=== PATIENT | male | born 1960 | race Two or more races ===

== ENCOUNTER 2024-01-16 17:22 | Inpatient (IN) | payer MEDICARE, OTHER ==
[~2024-01-16] VITALS: Ht 177.8 cm; Wt 82.6 kg
[2024-01-16] MEDS ORDERED: IV NS 0.9% 1,000 ML BAG IV ONE (17:30)
[2024-01-16] MEDS ORDERED: ACETAMINOPHEN ES 500 MG TABLET ONE (17:46)
[2024-01-16 17:52] LABS: BASOPHILS % (AUTO) 0.3 % (0.0-2.0); EOSINOPHILS # (AUTO) 0.2 K/uL (0.0-0.7); EOSINOPHILS % (AUTO) 1.6 % (0.0-6.0); HEMATOCRIT 31 % (39-51); HEMOGLOBIN 9.8 g/dL (13.5-17.5); LYMPHOCYTES # (AUTO) 0.7 K/uL (0.8-4.8); LYMPHOCYTES % (AUTO) 6.4 % (20.0-44.0); MEAN CORPUSCULAR HEMOGLOBIN 29 PG (26.0-33.0); MEAN CORPUSCULAR HGB CONC 32 g/dl (31.0-36.0); MEAN CORPUSCULAR VOLUME 91 fL (80-96); MONOCYTES % (AUTO) 17.2 % (2.0-12.0); NEUTROPHILS # (AUTO) 8.5 K/uL (1.8-8.9); NEUTROPHILS % (AUTO) 74.5 % (43.0-81.0); PLATELET COUNT (AUTO) 374 K/uL (150-450); RED BLOOD CELL COUNT(AUTO) 3.39 MIL/uL (4.5-6.0); RED CELL DISTRIBUTION WIDTH 16.8 % (11.5-15.0); WHITE BLOOD COUNT (AUTO) 11.5 K/uL (4.3-11.0)
[2024-01-16 17:57] LABS: CALCIUM, SERUM 10.9 mg/dL (8.5-10.1); CARBON DIOXIDE 34 mmol/L (21-32); CHLORIDE 102 mmol/L (98-107); CREATININE 3.4 mg/dL (0.6-1.3); GLUCOSE 194 mg/dL (74-106); POTASSIUM 4.1 mmol/L (3.5-5.1); SODIUM SERUM 139 mmol/L (136-145); UREA NITROGEN, BLOOD 53 mg/dL (7-18)
[2024-01-16 17:58] LABS: INR 1.1 (0.91-1.10); PARTIAL THROMBOPLASTIN TIME 36.7 SEC (24.3-34.3); PROTHROMBIN TIME 11.6 SECS (9.2-11.1)
[2024-01-16 18:03] LABS: ALANINE AMINOTRANSFERASE < 6 U/L (12-78); ALKALINE PHOSPHATASE 161 U/L (46-116); ASPARTATE AMINOTRANSFERASE 11 U/L (15-37); BILIRUBIN,DIRECT 0.2 mg/dL (0.0-0.2); BILIRUBIN,TOTAL 0.5 mg/dL (0.2-1.0); TOTAL PROTEIN, SERUM 8.5 g/dL (6.4-8.2)
[2024-01-16 18:06] LABS: LACTIC ACID 1.2 mmol/L (0.4-2.0)
[2024-01-16] MEDS: ACETAMINOPHEN ES 500 MG TABLET GT ONE (18:06)
[2024-01-16 18:07] LABS: BAND % (MANUAL) 1 % (0.0-5.0); EOSINOPHILS % (MANUAL) 1 % (0-4); LYMPHOCYTES % (MANUAL) 4 % (16-48); MONOCYTES % (MANUAL) 16 % (0-11.0); NEUTROPHILS % (MANUAL) 78 (42-76)
[2024-01-16 18:10] LABS: ANISOCYTOSIS 1+; PLATELET ESTIMATE ADEQUATE; TARGET CELLS 1+
[2024-01-16 18:13] LABS: ABG BASE EXCESS 5.7 mmol/L (-2.0-3.0); ABG OXYGEN SATURATION 99.6 % (94.0-98.0); ABG PCO2 47.6 mmHg (35.0-48.0); ABG PH 7.429 (7.350-7.450); ABG PO2 271.9 mmHg (83.0-108.0); ABG TOTAL HEMOGLOBIN 10.2 G/dL (13.5-17.5); COHb 0.3 % (0.5-1.5); MetHb 0.3 % (0.0-1.5); PEEP,BG 5 cm H2O; SITE, ABG RIGHT RADIAL; VT, ABG 500 mL
[2024-01-16] MEDS ORDERED: PIPERACI/TAZO 3.375GM/D5W 50ML PB IV ONE (18:34)
[2024-01-16] MEDS: PIPERACILLIN /TAZOBACTAM 3.375 G in IV D5W 50 ML IV ONE (18:39)
[2024-01-16] MEDS ORDERED: INSU100V39 SQ (18:43)
[2024-01-16] MEDS ORDERED: ACET160L44 GT (18:43)
[2024-01-16] MEDS ORDERED: BISA10SU11 RC (18:43)
[2024-01-16] MEDS ORDERED: GABA300C GT (18:43)
[2024-01-16] MEDS ORDERED: AMLO-212 GT (18:43)
[2024-01-16] MEDS ORDERED: MELA3TAB41 GT (18:43)
[2024-01-16] MEDS ORDERED: GLUC3SPR NS (18:43)
[2024-01-16] MEDS ORDERED: IPRA3AMP23 NEB ×2 (18:43)
[2024-01-16] MEDS ORDERED: POLY17PO4 GT (18:43)
[2024-01-16] MEDS ORDERED: ATOR10TA GT (18:43)
[2024-01-16] MEDS ORDERED: FOLI0.8T43 GT (18:43)
[2024-01-16] MEDS ORDERED: SODI1TAB66 GT (18:43)
[2024-01-16] MEDS ORDERED: SENN8.6T19 GT (18:43)
[2024-01-16] MEDS ORDERED: NUTR100037 GT (18:43)
[2024-01-16] MEDS ORDERED: HYDR-4077 GT ×2 (18:43)
[2024-01-16] MEDS ORDERED: VALP250S3 GT (18:43)
[2024-01-16] MEDS ORDERED: ONDA4TAB5 GT (18:43)
[2024-01-16] MEDS ORDERED: AMIN30LI2 GT (18:43)
[2024-01-16] MEDS ORDERED: ONDANSETRON HCL/PF 4 MG/2 ML VIAL IVP PRN (19:00)
[2024-01-16] MEDS ORDERED: Z GUARD REMEDY 4 OZ OINT TP PRN (19:00)
[2024-01-16] MEDS ORDERED: ZOLPIDEM TARTRATE 5 MG TABLET PO PRN (19:00)
[2024-01-16] MEDS ORDERED: MAG HYDROX/AL HYDROX/SIMETH 30 ML UDC PO PRN (19:00)
[2024-01-16] MEDS ORDERED: ACETAMINOPHEN 325 MG TABLET PO PRN (19:00)
[2024-01-16] MEDS ORDERED: MAGNESIUM HYDROXIDE 30 ML UDC PO PRN (19:00)
[2024-01-16 20:00] VITALS: BP 148/63; TEMP 98.8; O2SAT 99
[2024-01-16] MEDS: PIPERACILLIN /TAZOBACTAM 2.25 G in IV D5W 50 ML IV SCH (21:26)
[2024-01-17] VITALS: BP 152/65; TEMP 98.6; O2SAT 98
[2024-01-17 04:00] VITALS: BP 151/62; TEMP 98.6; O2SAT 98
[2024-01-17 07:13] LABS: BASOPHILS # (AUTO) 0.1 K/uL (0.0-0.2); BASOPHILS % (AUTO) 0.7 % (0.0-2.0); EOSINOPHILS # (AUTO) 0.5 K/uL (0.0-0.7); EOSINOPHILS % (AUTO) 4.8 % (0.0-6.0); HEMATOCRIT 28 % (39-51); LYMPHOCYTES # (AUTO) 0.8 K/uL (0.8-4.8); LYMPHOCYTES % (AUTO) 8.2 % (20.0-44.0); MEAN CORPUSCULAR HEMOGLOBIN 30 PG (26.0-33.0); MEAN CORPUSCULAR HGB CONC 32 g/dl (31.0-36.0); MEAN CORPUSCULAR VOLUME 92 fL (80-96); MONOCYTES # (AUTO) 1.2 K/uL (0.1-1.30); MONOCYTES % (AUTO) 12.8 % (2.0-12.0); NEUTROPHILS % (AUTO) 73.5 % (43.0-81.0); PLATELET COUNT (AUTO) 340 K/uL (150-450); RED BLOOD CELL COUNT(AUTO) 3.06 MIL/uL (4.5-6.0); RED CELL DISTRIBUTION WIDTH 16.5 % (11.5-15.0); WHITE BLOOD COUNT (AUTO) 9.6 K/uL (4.3-11.0)
[2024-01-17] MEDS: PANTOPRAZOLE 40 MG TABLET.DR PO SCH (07:30)
[2024-01-17 07:41] LABS: CALCIUM, SERUM 11.6 mg/dL (8.5-10.1); CREATININE 3.7 mg/dL (0.6-1.3); MAGNESIUM 2.7 mg/dL (1.8-2.4); PHOSPHORUS 2.7 mg/dL (2.5-4.9); POTASSIUM 4.5 mmol/L (3.5-5.1)
[2024-01-17 08:00] VITALS: BP 153/80; TEMP 97.9; O2SAT 98
[2024-01-17 08:07] LABS: THYROID STIMULATING HORMONE 1.33 uIU/mL (0.358-3.74)
[2024-01-17] MEDS: HEPARIN SODIUM, PORCINE 5000 UNITS/1 ML VIAL SQ SCH (09:35)
[2024-01-17 12:00] VITALS: BP 116/76; TEMP 98; O2SAT 98
[2024-01-17] MEDS ORDERED: MAGNESIUM HYDROXIDE 30 ML UDC GT PRN (12:47)
[2024-01-17] MEDS ORDERED: ZOLPIDEM TARTRATE 5 MG TABLET GT PRN (12:47)
[2024-01-17] MEDS ORDERED: MAG HYDROX/AL HYDROX/SIMETH 30 ML UDC GT PRN (12:47)
[2024-01-17] MEDS: NEPRO 1,000 ML BOTTLE GT PRN (14:16)
[2024-01-17 16:00] VITALS: BP 95/76; TEMP 99.3; O2SAT 96
[2024-01-17 20:00] VITALS: BP 150/69; TEMP 99; O2SAT 96
[2024-01-18] VITALS (7 sets, daily range): BP systolic 136–190; BP diastolic 65–90; TEMP 98.6–99.1; O2SAT 97–99
[2024-01-18] MEDS: PANTOPRAZOLE 40 MG/PACK PACK GT SCH (08:08)
[2024-01-18] MEDS ORDERED: DEXTROSE 50%-WATER 50 ML DISP.SYRIN IV PRN (12:00)
[2024-01-18] MEDS: BLOOD SUGAR DIAGNOSTIC 1 EACH STRIP VI SCH (12:23)
[2024-01-18] MEDS: INSULIN REGULAR, HUMAN 100 UNIT/ML 3 ML VIAL SQ PRN (12:24)
[2024-01-18] MEDS: ACETAMINOPHEN 650 MG/20.3 ML UDC GT PRN (20:45)
[2024-01-18] MEDS: *INSULIN REGULAR(HUMULIN R)HUM 100 UNIT/ML VIAL SQ PRN (22:24)
[2024-01-19] VITALS: BP 131/60; TEMP 99.3; O2SAT 99
[2024-01-19 04:00] VITALS: BP 157/83; TEMP 99.6; O2SAT 99
[2024-01-19 06:07] LABS: HEPATITIS B SURFACE AB Reactive (.)
[2024-01-19 06:41] LABS: BASOPHILS # (AUTO) 0.1 K/uL (0.0-0.2); BASOPHILS % (AUTO) 0.7 % (0.0-2.0); EOSINOPHILS # (AUTO) 0.4 K/uL (0.0-0.7); HEMATOCRIT 29 % (39-51); HEMOGLOBIN 9.2 g/dL (13.5-17.5); LYMPHOCYTES # (AUTO) 1.4 K/uL (0.8-4.8); LYMPHOCYTES % (AUTO) 13.4 % (20.0-44.0); MEAN CORPUSCULAR HEMOGLOBIN 29 PG (26.0-33.0); MEAN CORPUSCULAR HGB CONC 32 g/dl (31.0-36.0); MEAN CORPUSCULAR VOLUME 91 fL (80-96); MONOCYTES # (AUTO) 1.1 K/uL (0.1-1.30); MONOCYTES % (AUTO) 10.6 % (2.0-12.0); NEUTROPHILS # (AUTO) 7.4 K/uL (1.8-8.9); NEUTROPHILS % (AUTO) 71.3 % (43.0-81.0); PLATELET COUNT (AUTO) 332 K/uL (150-450); RED CELL DISTRIBUTION WIDTH 16.3 % (11.5-15.0); WHITE BLOOD COUNT (AUTO) 10.4 K/uL (4.3-11.0)
[2024-01-19 07:16] LABS: CALCIUM, SERUM 11.2 mg/dL (8.5-10.1); CREATININE 4.1 mg/dL (0.6-1.3); MAGNESIUM 2.7 mg/dL (1.8-2.4); PHOSPHORUS 3.1 mg/dL (2.5-4.9); POTASSIUM 4.2 mmol/L (3.5-5.1)
[2024-01-19 08:00] VITALS: BP 158/65; TEMP 98.6; O2SAT 96
[2024-01-19 12:00] VITALS: BP 130/78; TEMP 99; O2SAT 99
[2024-01-19] MEDS ORDERED: AMOX-430 PO (12:18)
[2024-01-19 16:00] VITALS: BP 128/72; TEMP 98.2; O2SAT 99
== END 2024-01-19 19:20 | DRG 208 ==
LOC: ER 17:30 → TELE1 19:23 → TELE-TD 20:33 → TELE1 01-17 08:41
PROVIDERS: ADMIT Student in an Organized Health Care Education/Training Program; ATTEND Student in an Organized Health Care Education/Training Program
PROC: 5A1945Z Respiratory Ventilation, 24-96 Consecutive Hours (ICD-10-PCS; principal; 2024-01-16)
PROC: 5A1D70Z Performance of Urinary Filtration, Intermittent, Less than 6 Hours Per Day (ICD-10-PCS; 2024-01-17)
DX: J15.69 Pneumonia due to other Gram-negative bacteria (principal); N18.6 End stage renal disease; G92.9 Unspecified toxic encephalopathy; J96.10 Chronic respiratory failure, unspecified whether with hypoxia or hypercapnia; G93.40 Encephalopathy, unspecified; E44.0 Moderate protein-calorie malnutrition; G93.1 Anoxic brain damage, not elsewhere classified; I12.0 Hypertensive chronic kidney disease with stage 5 chronic kidney disease or end stage renal disease; Z99.11 Dependence on respirator [ventilator] status; J95.851 Ventilator associated pneumonia; J81.1 Chronic pulmonary edema; Z20.822 Contact with and (suspected) exposure to COVID-19; E78.5 Hyperlipidemia, unspecified; E11.22 Type 2 diabetes mellitus with diabetic chronic kidney disease; D64.9 Anemia, unspecified; Z93.1 Gastrostomy status; Z99.2 Dependence on renal dialysis; Z93.0 Tracheostomy status; G40.909 Epilepsy, unspecified, not intractable, without status epilepticus; L89.90 Pressure ulcer of unspecified site, unspecified stage; M89.8X9 Other specified disorders of bone, unspecified site; R13.10 Dysphagia, unspecified; Y95 Nosocomial condition; E87.70 Fluid overload, unspecified; Y84.8 Other medical procedures as the cause of abnormal reaction of the patient, or of later complication, without mention of misadventure at the time of the procedure; Y92.89 Other specified places as the place of occurrence of the external cause
CPT/HCPCS: 31720; 36415; 36600; 71045-TC; 71250-TC; 80048-TC; 80076-TC; 82803-TC; 82962-TC; 83605-TC; 83735-TC; 84100-TC; 84443-TC; 84484-TC; 85025-TC; 85730-TC; 86706; 87040-TC; 87081-TC; 87340; 90935-TC; 94002-TC; 94003-TC; 94760-TC; 94762-TC; 94799-TC; 99082-TC; A4223; A4623; G0378; J1644; J1815; J2543; J7030; J7050; J7060

== ENCOUNTER 2024-02-28 13:23 | Inpatient (IN) | payer MEDICARE, OTHER ==
[~2024-02-28] VITALS: Ht 165.1 cm; Wt 73.7 kg
[~2024-02-28 13:23] MED LIST: ACET160L44 GT; AMIN30LI2 GT; AMLO-212 GT; AMOX-430 PO; ATOR10TA GT; BISA10SU11 RC; FOLI0.8T43 GT; GABA300C GT; GLUC3SPR NS; HYDR-4077 GT; INSU100V39 SQ; IPRA3AMP23 NEB; MELA3TAB41 GT; NUTR100037 GT; ONDA4TAB5 GT; POLY17PO4 GT; SENN8.6T19 GT; SODI1TAB66 GT; VALP250S3 GT
[2024-02-28] MEDS ORDERED: methylPREDNISolone SOD SUCC 125 MG/2ML VIAL ONE (13:59)
[2024-02-28] MEDS: methylPREDNISolone SOD SUCC 125 MG/2ML VIAL IV ONE (14:00)
[2024-02-28] MEDS: PIPERACILLIN /TAZOBACTAM 3.375 G in IV D5W 50 ML IV ONE (14:00)
[2024-02-28 14:12] LABS: ABG BASE EXCESS 1.9 mmol/L (-2.0-3.0); ABG OXYGEN SATURATION 96.5 % (94.0-98.0); ABG PCO2 40.5 mmHg (35.0-48.0); ABG PH 7.431 (7.350-7.450); ABG PO2 89.9 mmHg (83.0-108.0); ABG TOTAL HEMOGLOBIN 11.9 G/dL (13.5-17.5); COHb 0.3 % (0.5-1.5); MetHb 0.4 % (0.0-1.5); O2Hb 95.8 % (94.0-97.0); PEEP,BG 5 cm H2O; SITE, ABG RIGHT RADIAL; VT, ABG 500 mL
[2024-02-28 14:13] LABS: BASOPHILS % (AUTO) 0.2 % (0.0-2.0); EOSINOPHILS # (AUTO) 0.6 K/uL (0.0-0.7); HEMATOCRIT 33 % (39-51); HEMOGLOBIN 10.7 g/dL (13.5-17.5); LYMPHOCYTES # (AUTO) 1.8 K/uL (0.8-4.8); LYMPHOCYTES % (AUTO) 9.7 % (20.0-44.0); MEAN CORPUSCULAR HEMOGLOBIN 31 PG (26.0-33.0); MEAN CORPUSCULAR HGB CONC 33 g/dl (31.0-36.0); MEAN CORPUSCULAR VOLUME 94 fL (80-96); MONOCYTES # (AUTO) 0.8 K/uL (0.1-1.30); MONOCYTES % (AUTO) 4.2 % (2.0-12.0); NEUTROPHILS # (AUTO) 15.6 K/uL (1.8-8.9); NEUTROPHILS % (AUTO) 82.9 % (43.0-81.0); PLATELET COUNT (AUTO) 378 K/uL (150-450); RED BLOOD CELL COUNT(AUTO) 3.47 MIL/uL (4.5-6.0); WHITE BLOOD COUNT (AUTO) 18.8 K/uL (4.3-11.0)
[2024-02-28] MEDS ORDERED: ALBUTEROL FS 2.5 MG/3 ML VIAL.NEB ONE (14:14)
[2024-02-28] MEDS ORDERED: IPRATROPIUM NEB FS 0.5 MG/2.5 ML AMPUL.NEB ONE (14:14)
[2024-02-28] MEDS: VANCOMYCIN 1 GM in IV D5W 250 ML IV ONE (14:15)
[2024-02-28] MEDS: ALBUTEROL FS 2.5 MG/3 ML VIAL.NEB NEB ONE (14:19)
[2024-02-28] MEDS: IPRATROPIUM NEB FS 0.5 MG/2.5 ML AMPUL.NEB NEB ONE (14:19)
[2024-02-28] MEDS: IV NS 0.9% 1,000 ML BAG IV ONE (14:45)
[2024-02-28 14:50] LABS: CALCIUM, SERUM 11.9 mg/dL (8.5-10.1); CARBON DIOXIDE 32 mmol/L (21-32); CHLORIDE 101 mmol/L (98-107); CREATININE 3.9 mg/dL (0.6-1.3); GLUCOSE 180 mg/dL (74-106); POTASSIUM 3.7 mmol/L (3.5-5.1); SODIUM SERUM 137 mmol/L (136-145); UREA NITROGEN, BLOOD 72 mg/dL (7-18)
[2024-02-28 14:56] LABS: ALANINE AMINOTRANSFERASE 13 U/L (12-78); ALKALINE PHOSPHATASE 133 U/L (46-116); ASPARTATE AMINOTRANSFERASE 15 U/L (15-37); BILIRUBIN,DIRECT 0.2 mg/dL (0.0-0.2); BILIRUBIN,TOTAL 0.4 mg/dL (0.2-1.0); TOTAL PROTEIN, SERUM 8.6 g/dL (6.4-8.2)
[2024-02-28 15:02] LABS: LACTIC ACID 2.2 mmol/L (0.4-2.0)
[2024-02-28] MEDS ORDERED: SEVE0.8P GT (15:02)
[2024-02-28] MEDS ORDERED: CLON0.5T4 GT (15:02)
[2024-02-28] MEDS ORDERED: heparin SQ (15:06)
[2024-02-28] MEDS ORDERED: IV NS 0.9% 1,000 ML BAG IV ONE (15:30)
[2024-02-28] MEDS ORDERED: DEXTROSE 50%-WATER 50 ML DISP.SYRIN IV PRN (17:00)
[2024-02-28] MEDS ORDERED: ACETAMINOPHEN 325 MG TABLET PO PRN (17:00)
[2024-02-28] MEDS ORDERED: ONDANSETRON HCL/PF 4 MG/2 ML VIAL IVP PRN (17:00)
[2024-02-28] MEDS ORDERED: ALBUTEROL FS 2.5 MG/0.5 ML VIAL.NEB NEB PRN (17:00)
[2024-02-28] MEDS ORDERED: MORPHINE SULFATE INJ 2 MG/ML DISP.SYRIN IV PRN (17:00)
[2024-02-28] MEDS ORDERED: ALBUTEROL FS 2.5 MG/3 ML VIAL.NEB NEB PRN (17:30)
[2024-02-28] MEDS: IPRATROPIUM NEB FS 0.5 MG/2.5 ML AMPUL.NEB NEB SCH (19:30)
[2024-02-28] MEDS ORDERED: IPRATROPIUM NEB FS 0.5 MG/2.5 ML AMPUL.NEB NEB PRN (19:30)
[2024-02-28] MEDS: ALBUTEROL FS 2.5 MG/3 ML VIAL.NEB NEB SCH (19:30)
[2024-02-28 20:44] VITALS: BP 134/75; TEMP 99.6; O2SAT 100
[2024-02-28] MEDS: clonazePAM 0.5 MG TABLET GT SCH (20:54)
[2024-02-28] MEDS: GABAPENTIN 300 MG CAPSULE GT SCH (20:54)
[2024-02-28] MEDS: DOCUSATE SODIUM LIQ 100 MG/10 ML UDC PO SCH (20:55)
[2024-02-28] MEDS: PROSOURCE / PROSTAT (PYXIS) 30 ML UDC GT SCH (20:55)
[2024-02-28] MEDS: SEVELAMER CARBONATE 800 MG POWD.PACK GT SCH (20:55)
[2024-02-28] MEDS: VALPROIC ACID 250 MG/5 ML UDC GT SCH (20:55)
[2024-02-28] MEDS: CEFEPIME 1 GM in IV D5W 50 ML IV SCH (20:56)
[2024-02-28] MEDS: HEPARIN SODIUM, PORCINE 5000 UNITS/1 ML VIAL SQ SCH (20:57)
[2024-02-28 21:00] VITALS: BP 141/76; O2SAT 100
[2024-02-28] MEDS: BLOOD SUGAR DIAGNOSTIC 1 EACH STRIP IN SCH (21:04)
[2024-02-28] MEDS: INSULIN REGULAR, HUMAN 100 UNIT/ML 3 ML VIAL SQ PRN (21:05)
[2024-02-28] MEDS: ATORVASTATIN 10 MG TABLET GT SCH (21:28)
[2024-02-28] MEDS: IV NS 0.9% 250 ML IV PRN (21:29)
[2024-02-28 22:00] VITALS: BP 157/78; O2SAT 99
[2024-02-28 22:30] VITALS: BP 167/83; O2SAT 100
[2024-02-28] MEDS: NEPRO 1,000 ML BOTTLE GT PRN (22:41)
[2024-02-28 23:00] VITALS: BP 164/83; O2SAT 100
[2024-02-29] VITALS (19 sets, daily range): BP systolic 121–179; BP diastolic 44–92; TEMP 97.9–98.8; O2SAT 98–100
[2024-02-29] MEDS: hydrALAZINE HCL IV 20 MG VIAL IV PRN (00:29)
[2024-02-29 05:00] LABS: HEMATOCRIT 29 % (39-51); HEMOGLOBIN 9.6 g/dL (13.5-17.5); LYMPHOCYTES # (AUTO) 0.7 K/uL (0.8-4.8); LYMPHOCYTES % (AUTO) 3.1 % (20.0-44.0); MEAN CORPUSCULAR HEMOGLOBIN 32 PG (26.0-33.0); MEAN CORPUSCULAR HGB CONC 34 g/dl (31.0-36.0); MEAN CORPUSCULAR VOLUME 94 fL (80-96); MONOCYTES # (AUTO) 0.2 K/uL (0.1-1.30); MONOCYTES % (AUTO) 0.9 % (2.0-12.0); NEUTROPHILS # (AUTO) 21.7 K/uL (1.8-8.9); PLATELET COUNT (AUTO) 372 K/uL (150-450); RED BLOOD CELL COUNT(AUTO) 3.05 MIL/uL (4.5-6.0); RED CELL DISTRIBUTION WIDTH 18.3 % (11.5-15.0); WHITE BLOOD COUNT (AUTO) 22.6 K/uL (4.3-11.0)
[2024-02-29 05:05] LABS: ABG BASE EXCESS 1.9 mmol/L (-2.0-3.0); ABG OXYGEN SATURATION 93.6 % (94.0-98.0); ABG PCO2 44.5 mmHg (35.0-48.0); ABG PH 7.401 (7.350-7.450); ABG PO2 71.5 mmHg (83.0-108.0); ABG TOTAL HEMOGLOBIN 11.3 G/dL (13.5-17.5); COHb 0.4 % (0.5-1.5); MetHb 0.3 % (0.0-1.5); O2Hb 92.9 % (94.0-97.0); PEEP,BG 5 cm H2O; SITE, ABG RIGHT RADIAL; VT, ABG 500 mL
[2024-02-29 05:18] LABS: ALBUMIN 2.1 g/dL (3.4-5.0); BILIRUBIN,TOTAL 0.4 mg/dL (0.2-1.0); CALCIUM, SERUM 11.6 mg/dL (8.5-10.1); CREATININE 4.3 mg/dL (0.6-1.3); MAGNESIUM 2.6 mg/dL (1.8-2.4); PHOSPHORUS 4.5 mg/dL (2.5-4.9); POTASSIUM 4.7 mmol/L (3.5-5.1); TOTAL PROTEIN, SERUM 8.5 g/dL (6.4-8.2)
[2024-02-29 06:11] LABS: BAND % (MANUAL) 1 % (0.0-5.0); LYMPHOCYTES % (MANUAL) 1 % (16-48); NEUTROPHILS % (MANUAL) 98 (42-76); PLATELET ESTIMATE ADEQUATE
[2024-02-29] MEDS: hydrALAZINE HCL 50 MG TABLET GT SCH (09:10)
[2024-02-29] MEDS: POLYETHYLENE GLYCOL 3350 17 GM POWD.PACK GT SCH (09:10)
[2024-02-29] MEDS: DOCUSATE SODIUM LIQ 100 MG/10 ML UDC GT SCH (09:10)
[2024-02-29] MEDS: SODIUM CHLORIDE 1000 MG TABLET GT SCH (09:11)
[2024-02-29] MEDS: AMLODIPINE BESYLATE 5 MG TABLET GT SCH (09:11)
[2024-02-29] MEDS: VIT B CMPLX 3/FA/VIT C/BIOTIN 1 TAB TABLET GT SCH (09:11)
[2024-03-01] VITALS: BP 115/45; TEMP 98.2; O2SAT 100
[2024-03-01 04:00] VITALS: BP 102/41; TEMP 98.1; O2SAT 99
[2024-03-01 07:01] LABS: ALBUMIN 2.1 g/dL (3.4-5.0); BILIRUBIN,TOTAL 0.3 mg/dL (0.2-1.0); CALCIUM, SERUM 11.1 mg/dL (8.5-10.1); CREATININE 5.1 mg/dL (0.6-1.3); POTASSIUM 4.4 mmol/L (3.5-5.1)
[2024-03-01 07:12] LABS: BASOPHILS % (AUTO) 0.1 % (0.0-2.0); EOSINOPHILS # (AUTO) 0.2 K/uL (0.0-0.7); EOSINOPHILS % (AUTO) 1.2 % (0.0-6.0); HEMATOCRIT 30 % (39-51); HEMOGLOBIN 9.9 g/dL (13.5-17.5); LYMPHOCYTES # (AUTO) 1.4 K/uL (0.8-4.8); LYMPHOCYTES % (AUTO) 10.7 % (20.0-44.0); MEAN CORPUSCULAR HEMOGLOBIN 31 PG (26.0-33.0); MEAN CORPUSCULAR HGB CONC 33 g/dl (31.0-36.0); MEAN CORPUSCULAR VOLUME 95 fL (80-96); MONOCYTES # (AUTO) 0.7 K/uL (0.1-1.30); MONOCYTES % (AUTO) 5.2 % (2.0-12.0); NEUTROPHILS % (AUTO) 82.8 % (43.0-81.0); PLATELET COUNT (AUTO) 410 K/uL (150-450); RED CELL DISTRIBUTION WIDTH 18.5 % (11.5-15.0); WHITE BLOOD COUNT (AUTO) 13.3 K/uL (4.3-11.0)
[2024-03-01] MEDS ORDERED: ACETAMINOPHEN 650 MG/20.3 ML UDC GT PRN (07:30)
[2024-03-01 08:05] VITALS: BP 133/50; TEMP 98.5; O2SAT 99
[2024-03-01] MEDS: VANCOMYCIN POST DIALYSIS 500MG IV PRN (08:07)
[2024-03-01 12:05] VITALS: BP 125/47; TEMP 98.6; O2SAT 100
[2024-03-01 16:05] VITALS: BP 110/42; TEMP 98.2; O2SAT 100
[2024-03-01 20:00] VITALS: BP 105/49; TEMP 98.5; O2SAT 100
[2024-03-02] VITALS: BP 105/41; TEMP 98.3; O2SAT 100
[2024-03-02 04:00] VITALS: BP 101/50; TEMP 98; O2SAT 100
[2024-03-02 07:02] LABS: BASOPHILS % (AUTO) 0.3 % (0.0-2.0); EOSINOPHILS # (AUTO) 0.3 K/uL (0.0-0.7); EOSINOPHILS % (AUTO) 2.2 % (0.0-6.0); HEMATOCRIT 31 % (39-51); HEMOGLOBIN 10.2 g/dL (13.5-17.5); LYMPHOCYTES # (AUTO) 1.2 K/uL (0.8-4.8); LYMPHOCYTES % (AUTO) 9.8 % (20.0-44.0); MEAN CORPUSCULAR HEMOGLOBIN 32 PG (26.0-33.0); MEAN CORPUSCULAR HGB CONC 33 g/dl (31.0-36.0); MEAN CORPUSCULAR VOLUME 95 fL (80-96); MONOCYTES # (AUTO) 0.9 K/uL (0.1-1.30); MONOCYTES % (AUTO) 7.2 % (2.0-12.0); NEUTROPHILS # (AUTO) 9.8 K/uL (1.8-8.9); NEUTROPHILS % (AUTO) 80.5 % (43.0-81.0); PLATELET COUNT (AUTO) 395 K/uL (150-450); RED BLOOD CELL COUNT(AUTO) 3.22 MIL/uL (4.5-6.0); RED CELL DISTRIBUTION WIDTH 18.6 % (11.5-15.0); WHITE BLOOD COUNT (AUTO) 12.2 K/uL (4.3-11.0)
[2024-03-02 07:12] LABS: MAGNESIUM 2.5 mg/dL (1.8-2.4)
[2024-03-02 07:16] LABS: BILIRUBIN,TOTAL 0.6 mg/dL (0.2-1.0); CALCIUM, SERUM 10.7 mg/dL (8.5-10.1); CREATININE 3.8 mg/dL (0.6-1.3)
[2024-03-02 08:00] VITALS: BP 110/63; TEMP 97.7; O2SAT 99
[2024-03-02 12:00] VITALS: BP 122/63; TEMP 97.4; O2SAT 100
[2024-03-02 16:00] VITALS: BP 127/67; TEMP 98; O2SAT 100
[2024-03-02 20:00] VITALS: BP 119/56; TEMP 99.3; O2SAT 100
[2024-03-03] VITALS: BP 126/58; TEMP 99; O2SAT 97
[2024-03-03 04:00] VITALS: BP 135/61; TEMP 98.1; O2SAT 100
[2024-03-03 08:00] VITALS: BP 117/62; TEMP 97.7; O2SAT 99
[2024-03-03 09:46] LABS: BASOPHILS % (AUTO) 0.3 % (0.0-2.0); EOSINOPHILS # (AUTO) 0.4 K/uL (0.0-0.7); EOSINOPHILS % (AUTO) 3.6 % (0.0-6.0); HEMATOCRIT 32 % (39-51); HEMOGLOBIN 10.7 g/dL (13.5-17.5); LYMPHOCYTES # (AUTO) 1.5 K/uL (0.8-4.8); LYMPHOCYTES % (AUTO) 14.1 % (20.0-44.0); MEAN CORPUSCULAR HEMOGLOBIN 31 PG (26.0-33.0); MEAN CORPUSCULAR HGB CONC 33 g/dl (31.0-36.0); MEAN CORPUSCULAR VOLUME 93 fL (80-96); MONOCYTES # (AUTO) 0.8 K/uL (0.1-1.30); MONOCYTES % (AUTO) 7.5 % (2.0-12.0); NEUTROPHILS # (AUTO) 7.7 K/uL (1.8-8.9); NEUTROPHILS % (AUTO) 74.5 % (43.0-81.0); PLATELET COUNT (AUTO) 379 K/uL (150-450); RED BLOOD CELL COUNT(AUTO) 3.45 MIL/uL (4.5-6.0); RED CELL DISTRIBUTION WIDTH 18.4 % (11.5-15.0); WHITE BLOOD COUNT (AUTO) 10.3 K/uL (4.3-11.0)
[2024-03-03 10:01] LABS: ALBUMIN 2.2 g/dL (3.4-5.0); BILIRUBIN,TOTAL 0.4 mg/dL (0.2-1.0); CALCIUM, SERUM 10.1 mg/dL (8.5-10.1); CREATININE 4.7 mg/dL (0.6-1.3); TOTAL PROTEIN, SERUM 7.9 g/dL (6.4-8.2)
[2024-03-03 12:00] VITALS: BP 146/64; TEMP 97.9; O2SAT 99
[2024-03-03 16:00] VITALS: BP 115/54; TEMP 97.5; O2SAT 99
[2024-03-03 20:00] VITALS: BP 112/44; TEMP 98.2; O2SAT 100
[2024-03-04] VITALS: BP 132/55; TEMP 98.4; O2SAT 100
[2024-03-04 04:00] VITALS: BP 121/52; TEMP 98.4; O2SAT 100
[2024-03-04 07:23] LABS: BASOPHILS % (AUTO) 0.2 % (0.0-2.0); EOSINOPHILS # (AUTO) 0.5 K/uL (0.0-0.7); EOSINOPHILS % (AUTO) 4.2 % (0.0-6.0); HEMATOCRIT 31 % (39-51); HEMOGLOBIN 10.4 g/dL (13.5-17.5); LYMPHOCYTES # (AUTO) 1.3 K/uL (0.8-4.8); LYMPHOCYTES % (AUTO) 11.4 % (20.0-44.0); MEAN CORPUSCULAR HEMOGLOBIN 31 PG (26.0-33.0); MEAN CORPUSCULAR HGB CONC 34 g/dl (31.0-36.0); MEAN CORPUSCULAR VOLUME 93 fL (80-96); MONOCYTES # (AUTO) 0.8 K/uL (0.1-1.30); MONOCYTES % (AUTO) 7.5 % (2.0-12.0); NEUTROPHILS # (AUTO) 8.6 K/uL (1.8-8.9); NEUTROPHILS % (AUTO) 76.7 % (43.0-81.0); PLATELET COUNT (AUTO) 363 K/uL (150-450); WHITE BLOOD COUNT (AUTO) 11.2 K/uL (4.3-11.0)
[2024-03-04 07:31] LABS: ALBUMIN 2.1 g/dL (3.4-5.0); BILIRUBIN,TOTAL 0.3 mg/dL (0.2-1.0); CALCIUM, SERUM 9.7 mg/dL (8.5-10.1); CREATININE 3.9 mg/dL (0.6-1.3); TOTAL PROTEIN, SERUM 7.9 g/dL (6.4-8.2)
[2024-03-04 08:00] VITALS: BP 120/48; TEMP 98; O2SAT 100
[2024-03-04 12:00] VITALS: BP 122/55; TEMP 97.7; O2SAT 100
[2024-03-04 16:00] VITALS: BP 104/52; TEMP 98; O2SAT 100
[2024-03-04 20:00] VITALS: BP 103/54; TEMP 99.1; O2SAT 100
[2024-03-05 00:01] VITALS: BP 108/54; TEMP 99; O2SAT 100
[2024-03-05 04:00] VITALS: BP 104/58; TEMP 98.4; O2SAT 100
[2024-03-05 06:44] LABS: BASOPHILS % (AUTO) 0.2 % (0.0-2.0); EOSINOPHILS # (AUTO) 0.3 K/uL (0.0-0.7); EOSINOPHILS % (AUTO) 2.8 % (0.0-6.0); HEMATOCRIT 31 % (39-51); HEMOGLOBIN 10.2 g/dL (13.5-17.5); LYMPHOCYTES # (AUTO) 1.6 K/uL (0.8-4.8); LYMPHOCYTES % (AUTO) 14.7 % (20.0-44.0); MEAN CORPUSCULAR HEMOGLOBIN 31 PG (26.0-33.0); MEAN CORPUSCULAR HGB CONC 33 g/dl (31.0-36.0); MEAN CORPUSCULAR VOLUME 94 fL (80-96); MONOCYTES # (AUTO) 0.6 K/uL (0.1-1.30); MONOCYTES % (AUTO) 5.5 % (2.0-12.0); NEUTROPHILS # (AUTO) 8.5 K/uL (1.8-8.9); NEUTROPHILS % (AUTO) 76.8 % (43.0-81.0); PLATELET COUNT (AUTO) 350 K/uL (150-450); RED BLOOD CELL COUNT(AUTO) 3.29 MIL/uL (4.5-6.0); WHITE BLOOD COUNT (AUTO) 11.1 K/uL (4.3-11.0)
[2024-03-05 07:45] LABS: ALBUMIN 2.1 g/dL (3.4-5.0); BILIRUBIN,TOTAL 0.8 mg/dL (0.2-1.0); CALCIUM, SERUM 10.1 mg/dL (8.5-10.1); CREATININE 4.8 mg/dL (0.6-1.3); POTASSIUM 4.7 mmol/L (3.5-5.1); TOTAL PROTEIN, SERUM 7.9 g/dL (6.4-8.2)
[2024-03-05 08:00] VITALS: BP 109/65; TEMP 98.4; O2SAT 100
[2024-03-05 12:00] VITALS: BP 125/55; TEMP 97.3; O2SAT 100
[2024-03-05 16:00] VITALS: BP 108/61; TEMP 98.2; O2SAT 100
[2024-03-05 20:00] VITALS: BP 130/53; TEMP 98.2; O2SAT 97
[2024-03-06] VITALS: BP 128/53; TEMP 98.2; O2SAT 100
[2024-03-06 04:00] VITALS: BP 144/59; TEMP 98.2; O2SAT 100
[2024-03-06 06:48] LABS: BASOPHILS % (AUTO) 0.1 % (0.0-2.0); EOSINOPHILS # (AUTO) 0.3 K/uL (0.0-0.7); EOSINOPHILS % (AUTO) 2.5 % (0.0-6.0); HEMATOCRIT 31 % (39-51); HEMOGLOBIN 10.5 g/dL (13.5-17.5); LYMPHOCYTES # (AUTO) 0.9 K/uL (0.8-4.8); LYMPHOCYTES % (AUTO) 7.6 % (20.0-44.0); MEAN CORPUSCULAR HEMOGLOBIN 32 PG (26.0-33.0); MEAN CORPUSCULAR HGB CONC 34 g/dl (31.0-36.0); MEAN CORPUSCULAR VOLUME 93 fL (80-96); MONOCYTES # (AUTO) 0.6 K/uL (0.1-1.30); MONOCYTES % (AUTO) 5.5 % (2.0-12.0); NEUTROPHILS # (AUTO) 9.5 K/uL (1.8-8.9); NEUTROPHILS % (AUTO) 84.3 % (43.0-81.0); PLATELET COUNT (AUTO) 357 K/uL (150-450); RED BLOOD CELL COUNT(AUTO) 3.29 MIL/uL (4.5-6.0); RED CELL DISTRIBUTION WIDTH 18.1 % (11.5-15.0); WHITE BLOOD COUNT (AUTO) 11.3 K/uL (4.3-11.0)
[2024-03-06 07:14] LABS: ALBUMIN 2.2 g/dL (3.4-5.0); BILIRUBIN,TOTAL 0.4 mg/dL (0.2-1.0); CALCIUM, SERUM 9.6 mg/dL (8.5-10.1); CREATININE 3.4 mg/dL (0.6-1.3); POTASSIUM 3.9 mmol/L (3.5-5.1); TOTAL PROTEIN, SERUM 8.2 g/dL (6.4-8.2)
[2024-03-06 08:00] VITALS: BP 122/51; TEMP 97.9; O2SAT 100
[2024-03-06 12:00] VITALS: BP 120/50; TEMP 98.6; O2SAT 100
[2024-03-06 16:00] VITALS: BP 125/52; TEMP 99; O2SAT 100
[2024-03-06 20:41] VITALS: BP 125/61; TEMP 98.6; O2SAT 99
[2024-03-07 00:30] VITALS: BP 133/63; TEMP 98.5; O2SAT 100
[2024-03-07 05:34] VITALS: BP 130/47; TEMP 98.3; O2SAT 99
[2024-03-07 07:11] LABS: BASOPHILS # (AUTO) 0.1 K/uL (0.0-0.2); BASOPHILS % (AUTO) 0.6 % (0.0-2.0); EOSINOPHILS # (AUTO) 0.4 K/uL (0.0-0.7); EOSINOPHILS % (AUTO) 3.2 % (0.0-6.0); HEMATOCRIT 28 % (39-51); HEMOGLOBIN 9.4 g/dL (13.5-17.5); LYMPHOCYTES # (AUTO) 1.5 K/uL (0.8-4.8); LYMPHOCYTES % (AUTO) 13.4 % (20.0-44.0); MEAN CORPUSCULAR HEMOGLOBIN 31 PG (26.0-33.0); MEAN CORPUSCULAR HGB CONC 33 g/dl (31.0-36.0); MEAN CORPUSCULAR VOLUME 94 fL (80-96); MONOCYTES % (AUTO) 8.8 % (2.0-12.0); NEUTROPHILS # (AUTO) 8.2 K/uL (1.8-8.9); PLATELET COUNT (AUTO) 337 K/uL (150-450); RED BLOOD CELL COUNT(AUTO) 3.04 MIL/uL (4.5-6.0); RED CELL DISTRIBUTION WIDTH 18.2 % (11.5-15.0); WHITE BLOOD COUNT (AUTO) 11.1 K/uL (4.3-11.0)
[2024-03-07 07:46] LABS: ALBUMIN 1.9 g/dL (3.4-5.0); BILIRUBIN,TOTAL 0.4 mg/dL (0.2-1.0); CREATININE 4.2 mg/dL (0.6-1.3); POTASSIUM 4.6 mmol/L (3.5-5.1); TOTAL PROTEIN, SERUM 7.6 g/dL (6.4-8.2)
[2024-03-07 08:00] VITALS: BP 135/61; TEMP 98.1; O2SAT 99
[2024-03-07 16:00] VITALS: BP 127/65; TEMP 98.2; O2SAT 99
[2024-03-07 20:00] VITALS: BP 127/65; TEMP 98.2; O2SAT 99
[2024-03-08] VITALS: BP_SYST 122; BP_SYST 130; BP_DIAS 70; BP_DIAS 80; TEMP 98.2; O2SAT 100; O2SAT 99
[2024-03-08 04:00] VITALS: BP 122/77; TEMP 98.4; O2SAT 100
[2024-03-08 06:50] LABS: BASOPHILS # (AUTO) 0.1 K/uL (0.0-0.2); BASOPHILS % (AUTO) 0.5 % (0.0-2.0); EOSINOPHILS # (AUTO) 0.3 K/uL (0.0-0.7); EOSINOPHILS % (AUTO) 2.8 % (0.0-6.0); HEMATOCRIT 30 % (39-51); HEMOGLOBIN 9.9 g/dL (13.5-17.5); LYMPHOCYTES % (AUTO) 10.1 % (20.0-44.0); MEAN CORPUSCULAR HEMOGLOBIN 31 PG (26.0-33.0); MEAN CORPUSCULAR HGB CONC 34 g/dl (31.0-36.0); MEAN CORPUSCULAR VOLUME 93 fL (80-96); MONOCYTES # (AUTO) 0.9 K/uL (0.1-1.30); MONOCYTES % (AUTO) 9.5 % (2.0-12.0); NEUTROPHILS # (AUTO) 7.5 K/uL (1.8-8.9); NEUTROPHILS % (AUTO) 77.1 % (43.0-81.0); PLATELET COUNT (AUTO) 336 K/uL (150-450); RED CELL DISTRIBUTION WIDTH 18.1 % (11.5-15.0); WHITE BLOOD COUNT (AUTO) 9.7 K/uL (4.3-11.0)
[2024-03-08 06:59] LABS: CALCIUM, SERUM 9.6 mg/dL (8.5-10.1); CREATININE 3.4 mg/dL (0.6-1.3); POTASSIUM 3.9 mmol/L (3.5-5.1)
[2024-03-08 07:00] LABS: ALBUMIN 2.2 g/dL (3.4-5.0); BILIRUBIN,TOTAL 0.4 mg/dL (0.2-1.0); TOTAL PROTEIN, SERUM 7.9 g/dL (6.4-8.2)
[2024-03-08 08:00] VITALS: BP 112/51; TEMP 98.1; O2SAT 100
[2024-03-08 12:00] VITALS: BP 127/56; TEMP 98.1; O2SAT 100
[2024-03-08 16:00] VITALS: BP 114/73; TEMP 98.2
[2024-03-08 20:00] VITALS: BP 96/64; TEMP 98.2; O2SAT 99
[2024-03-09] VITALS: BP 120/62; TEMP 97.8; O2SAT 99
[2024-03-09 04:00] VITALS: BP 150/80; TEMP 98.2; O2SAT 100
[2024-03-09 07:17] LABS: BASOPHILS # (AUTO) 0.1 K/uL (0.0-0.2); BASOPHILS % (AUTO) 0.8 % (0.0-2.0); EOSINOPHILS # (AUTO) 0.3 K/uL (0.0-0.7); EOSINOPHILS % (AUTO) 2.6 % (0.0-6.0); HEMATOCRIT 28 % (39-51); HEMOGLOBIN 9.8 g/dL (13.5-17.5); LYMPHOCYTES # (AUTO) 1.4 K/uL (0.8-4.8); LYMPHOCYTES % (AUTO) 13.5 % (20.0-44.0); MEAN CORPUSCULAR HEMOGLOBIN 32 PG (26.0-33.0); MEAN CORPUSCULAR HGB CONC 35 g/dl (31.0-36.0); MEAN CORPUSCULAR VOLUME 93 fL (80-96); MONOCYTES # (AUTO) 0.9 K/uL (0.1-1.30); NEUTROPHILS # (AUTO) 8.1 K/uL (1.8-8.9); NEUTROPHILS % (AUTO) 75.1 % (43.0-81.0); PLATELET COUNT (AUTO) 313 K/uL (150-450); RED BLOOD CELL COUNT(AUTO) 3.02 MIL/uL (4.5-6.0); RED CELL DISTRIBUTION WIDTH 17.7 % (11.5-15.0); WHITE BLOOD COUNT (AUTO) 10.7 K/uL (4.3-11.0)
[2024-03-09 07:38] LABS: ALBUMIN 2.1 g/dL (3.4-5.0); BILIRUBIN,TOTAL 0.4 mg/dL (0.2-1.0); CREATININE 4.2 mg/dL (0.6-1.3); POTASSIUM 4.6 mmol/L (3.5-5.1); TOTAL PROTEIN, SERUM 7.5 g/dL (6.4-8.2)
[2024-03-09 08:10] VITALS: BP 143/88; TEMP 98.1; O2SAT 100
[2024-03-09 12:20] VITALS: BP 145/76; TEMP 98.6; O2SAT 100
[2024-03-09 16:05] VITALS: BP 116/55; TEMP 98.1; O2SAT 99
[2024-03-09 20:00] VITALS: BP 121/41; TEMP 97.6; O2SAT 100
[2024-03-10] VITALS: BP 129/40; TEMP 98.2; O2SAT 100
[2024-03-10 04:00] VITALS: BP 120/39; TEMP 98.6; O2SAT 100
[2024-03-10 08:00] VITALS: BP 122/73; TEMP 97.7; O2SAT 100
[2024-03-10 08:15] LABS: BILIRUBIN,TOTAL 0.4 mg/dL (0.2-1.0); CALCIUM, SERUM 9.6 mg/dL (8.5-10.1); CREATININE 3.1 mg/dL (0.6-1.3); POTASSIUM 3.9 mmol/L (3.5-5.1); TOTAL PROTEIN, SERUM 7.3 g/dL (6.4-8.2)
[2024-03-10 08:22] LABS: BASOPHILS % (AUTO) 0.4 % (0.0-2.0); EOSINOPHILS # (AUTO) 0.3 K/uL (0.0-0.7); EOSINOPHILS % (AUTO) 2.7 % (0.0-6.0); HEMATOCRIT 28 % (39-51); HEMOGLOBIN 9.4 g/dL (13.5-17.5); LYMPHOCYTES # (AUTO) 1.1 K/uL (0.8-4.8); LYMPHOCYTES % (AUTO) 11.2 % (20.0-44.0); MEAN CORPUSCULAR HEMOGLOBIN 32 PG (26.0-33.0); MEAN CORPUSCULAR HGB CONC 34 g/dl (31.0-36.0); MEAN CORPUSCULAR VOLUME 93 fL (80-96); MONOCYTES # (AUTO) 0.7 K/uL (0.1-1.30); MONOCYTES % (AUTO) 7.4 % (2.0-12.0); NEUTROPHILS # (AUTO) 7.9 K/uL (1.8-8.9); NEUTROPHILS % (AUTO) 78.3 % (43.0-81.0); PLATELET COUNT (AUTO) 304 K/uL (150-450); RED BLOOD CELL COUNT(AUTO) 2.97 MIL/uL (4.5-6.0); RED CELL DISTRIBUTION WIDTH 17.7 % (11.5-15.0); WHITE BLOOD COUNT (AUTO) 10.1 K/uL (4.3-11.0)
[2024-03-10] MEDS ORDERED: ALBU2.5V13 NEB (10:38)
[2024-03-10] MEDS ORDERED: ALBUT2 NEB ×2 (10:38)
[2024-03-10] MEDS ORDERED: ACET650S26 GT (10:38)
[2024-03-10] MEDS ORDERED: POLY17PO29 GT (10:38)
[2024-03-10] MEDS ORDERED: Nepro GT (10:38)
[2024-03-10] MEDS ORDERED: DOCU50LI GT (10:38)
[2024-03-10 12:00] VITALS: BP 143/75; TEMP 98.5; O2SAT 100
[2024-03-10 16:00] VITALS: BP 137/76; TEMP 98.8; O2SAT 100
[2024-03-10 20:00] VITALS: BP 126/56; TEMP 98.1; O2SAT 100
[2024-03-11] VITALS: BP 149/60; TEMP 98.3; O2SAT 100
[2024-03-11 04:00] VITALS: BP 138/62; TEMP 98.1; O2SAT 100
[2024-03-11 07:15] LABS: BASOPHILS # (AUTO) 0.1 K/uL (0.0-0.2); BASOPHILS % (AUTO) 0.7 % (0.0-2.0); EOSINOPHILS # (AUTO) 0.3 K/uL (0.0-0.7); EOSINOPHILS % (AUTO) 2.5 % (0.0-6.0); HEMATOCRIT 29 % (39-51); HEMOGLOBIN 9.6 g/dL (13.5-17.5); LYMPHOCYTES # (AUTO) 1.3 K/uL (0.8-4.8); LYMPHOCYTES % (AUTO) 11.7 % (20.0-44.0); MEAN CORPUSCULAR HEMOGLOBIN 31 PG (26.0-33.0); MEAN CORPUSCULAR HGB CONC 34 g/dl (31.0-36.0); MEAN CORPUSCULAR VOLUME 93 fL (80-96); MONOCYTES # (AUTO) 0.8 K/uL (0.1-1.30); MONOCYTES % (AUTO) 6.9 % (2.0-12.0); NEUTROPHILS % (AUTO) 78.2 % (43.0-81.0); PLATELET COUNT (AUTO) 322 K/uL (150-450); RED BLOOD CELL COUNT(AUTO) 3.06 MIL/uL (4.5-6.0); RED CELL DISTRIBUTION WIDTH 17.4 % (11.5-15.0); WHITE BLOOD COUNT (AUTO) 11.5 K/uL (4.3-11.0)
[2024-03-11 07:50] LABS: ALBUMIN 2.1 g/dL (3.4-5.0); BILIRUBIN,TOTAL 0.5 mg/dL (0.2-1.0); CREATININE 4.1 mg/dL (0.6-1.3); POTASSIUM 4.2 mmol/L (3.5-5.1); TOTAL PROTEIN, SERUM 7.9 g/dL (6.4-8.2)
[2024-03-11 08:15] VITALS: BP 148/80; TEMP 98.1; O2SAT 100
[2024-03-11 12:14] VITALS: BP 134/69; TEMP 98.8; O2SAT 98
[2024-03-11 16:30] VITALS: BP 119/67; TEMP 98.6; O2SAT 100
[2024-03-11 20:00] VITALS: BP 110/44; TEMP 98.9; O2SAT 100
[2024-03-12] VITALS: BP 114/77; TEMP 98.9; O2SAT 100
[2024-03-12 04:00] VITALS: BP 112/72; TEMP 98.9; O2SAT 100
[2024-03-12 06:51] LABS: BASOPHILS # (AUTO) 0.1 K/uL (0.0-0.2); BASOPHILS % (AUTO) 0.4 % (0.0-2.0); EOSINOPHILS # (AUTO) 0.3 K/uL (0.0-0.7); EOSINOPHILS % (AUTO) 2.6 % (0.0-6.0); HEMATOCRIT 27 % (39-51); HEMOGLOBIN 9.1 g/dL (13.5-17.5); LYMPHOCYTES # (AUTO) 1.3 K/uL (0.8-4.8); MEAN CORPUSCULAR HEMOGLOBIN 32 PG (26.0-33.0); MEAN CORPUSCULAR HGB CONC 34 g/dl (31.0-36.0); MEAN CORPUSCULAR VOLUME 94 fL (80-96); MONOCYTES # (AUTO) 0.9 K/uL (0.1-1.30); MONOCYTES % (AUTO) 7.1 % (2.0-12.0); NEUTROPHILS # (AUTO) 10.3 K/uL (1.8-8.9); NEUTROPHILS % (AUTO) 79.9 % (43.0-81.0); PLATELET COUNT (AUTO) 295 K/uL (150-450); RED CELL DISTRIBUTION WIDTH 17.2 % (11.5-15.0); WHITE BLOOD COUNT (AUTO) 12.9 K/uL (4.3-11.0)
[2024-03-12 07:15] LABS: BILIRUBIN,TOTAL 0.5 mg/dL (0.2-1.0); CALCIUM, SERUM 9.7 mg/dL (8.5-10.1); CREATININE 3.9 mg/dL (0.6-1.3); POTASSIUM 4.5 mmol/L (3.5-5.1); TOTAL PROTEIN, SERUM 7.6 g/dL (6.4-8.2)
[2024-03-12 08:00] VITALS: BP 126/73; TEMP 98; O2SAT 99
[2024-03-12 08:43] VITALS: BP 126/73
== END 2024-03-12 11:29 | DRG 870 ==
LOC: ER 13:25 → ICU 17:52 → TELE-TD 02-29 11:07 → ICU 02-29 11:22 → TELE-TD 02-29 11:44 → TELE1 03-01 10:02
PROVIDERS: ADMIT Internal Medicine; ATTEND Nurse Practitioner Acute Care
PROC: 5A1955Z Respiratory Ventilation, Greater than 96 Consecutive Hours (ICD-10-PCS; principal; 2024-02-28)
PROC: 5A1D70Z Performance of Urinary Filtration, Intermittent, Less than 6 Hours Per Day (ICD-10-PCS; 2024-02-29)
DX: A41.89 Other specified sepsis (principal); J15.9 Unspecified bacterial pneumonia; N18.6 End stage renal disease; J96.20 Acute and chronic respiratory failure, unspecified whether with hypoxia or hypercapnia; G92.8 Other toxic encephalopathy; G93.1 Anoxic brain damage, not elsewhere classified; I12.0 Hypertensive chronic kidney disease with stage 5 chronic kidney disease or end stage renal disease; E44.0 Moderate protein-calorie malnutrition; J95.851 Ventilator associated pneumonia; Z99.11 Dependence on respirator [ventilator] status; D68.59 Other primary thrombophilia; E87.1 Hypo-osmolality and hyponatremia; G40.909 Epilepsy, unspecified, not intractable, without status epilepticus; B96.89 Other specified bacterial agents as the cause of diseases classified elsewhere; Y84.8 Other medical procedures as the cause of abnormal reaction of the patient, or of later complication, without mention of misadventure at the time of the procedure; Y92.129 Unspecified place in nursing home as the place of occurrence of the external cause; E11.22 Type 2 diabetes mellitus with diabetic chronic kidney disease; E78.5 Hyperlipidemia, unspecified; E88.09 Other disorders of plasma-protein metabolism, not elsewhere classified; L89.90 Pressure ulcer of unspecified site, unspecified stage; M89.8X9 Other specified disorders of bone, unspecified site; R13.10 Dysphagia, unspecified; Z20.822 Contact with and (suspected) exposure to COVID-19; Z93.0 Tracheostomy status; Z93.1 Gastrostomy status; Z99.2 Dependence on renal dialysis; Y95 Nosocomial condition; Z74.01 Bed confinement status; D63.1 Anemia in chronic kidney disease; Z79.4 Long term (current) use of insulin; Z79.899 Other long term (current) drug therapy; Z79.51 Long term (current) use of inhaled steroids
CPT/HCPCS: 31720; 36415; 36600; 71045-TC; 80048-TC; 80053-TC; 80076-TC; 80202-TC; 82803-TC; 82962-TC; 83605-TC; 83735-TC; 83880; 84100-TC; 84484-TC; 85025-TC; 86706; 87040-TC; 87081-TC; 87340; 90935-TC; 94003-TC; 94760-TC; 94762-TC; 94799-TC; A4223; A4623; A6403; G0378; J0360; J0692; J1644; J1815; J2543; J2919; J3370; J7030; J7050; J7060